=== PATIENT | male | born 1950 | race Caucasian/White ===

== ENCOUNTER 2017-07-17 09:59 | Day surgery (SDC) | payer MEDICARE, BC ==
[~2017-07-17 09:59] MED LIST: Metoclopramide 10 MG/2 ML SDV IV PRN; Sodium Chloride 0.9% 1,000 ML IV SCH; Sodium Chloride 0.9% 10 ML Syringe FLUSH PRN
[2017-07-17] MEDS ORDERED: Propofol 1,000 MG/100 ML SDV ONE (12:40)
[2017-07-17] MEDS ORDERED: Midazolam 1 MG/ML 5 ML SDV ONE (12:40)
--- NOTE | 2017-07-17 14:14 | OR ---
DATE OF OPERATION: 07/17/2017 PREOPERATIVE DIAGNOSIS: History of diverticulitis. POSTOPERATIVE DIAGNOSIS: History of diverticulitis. PROCEDURE: Colonoscopy with polypectomy. ANESTHESIA: MAC. ESTIMATED BLOOD LOSS: Minimal. COMPLICATIONS: None. INDICATION FOR THE PROCEDURE: The patient is a 67-year-old male, who 4 months ago had a bout of mild diverticulitis. This is the patient's first diverticulitis. He also had previous colonoscopy 8 years ago, which time was found to have 4 polyps. The patient has otherwise been doing well. No other change in his bowel habits. DESCRIPTION OF PROCEDURE: Informed consent was obtained from the patient. The patient was taken to the operating room, placed on table in left lateral decubitus position. Monitored anesthesia care was administered. Digital rectal exam was normal. Colonoscope was then advanced through the anus and directed toward the cecum. Cecum was identified by appendiceal orifice and ileocecal valve. Colonoscope was then slowly withdrawn. The patient did have a small sessile polyp in the ascending colon, which was removed with hot biopsy polypectomy in piecemeal fashion. The patient was noted to have a tortuous sigmoid colon with several small diverticula. Otherwise, no additional masses, areas of ischemia or inflammation were identified. Retroflexion was performed in the rectum, which was also unremarkable. Colonoscope was then withdrawn. FINDINGS: Ascending colon polyp and sigmoid diverticulosis. RECOMMENDATIONS: We will follow up on biopsies. Otherwise, would recommend repeat screening colonoscopy in 5 years. YANA /[id number]
== END 2017-07-17 14:40 | disposition home or self-care (01) ==
LOC: LB.SDS 09:59
PROVIDERS: ATTEND Surgery
DX: D12.2 Benign neoplasm of ascending colon (principal); K57.30 Diverticulosis of large intestine without perforation or abscess without bleeding; Z86.010 Personal history of colon polyps; Z87.19 Personal history of other diseases of the digestive system
CPT/HCPCS: 88305; J2250; J3490; J7040

== ENCOUNTER 2023-06-19 09:27 | Day surgery (SDC) | payer MEDICARE ==
[~2023-06-19 09:27] MED LIST changes: -Sodium Chloride 0.9% 1,000 ML IV SCH; -Sodium Chloride 0.9% 10 ML Syringe FLUSH PRN
[2023-06-19] MEDS: Sodium Chloride 0.9% 1,000 ML IV SCH (10:01)
[2023-06-19] MEDS ORDERED: Propofol 1,000 MG/100 ML SDV ONE (11:45)
== END 2023-06-19 13:04 | disposition home or self-care (01) ==
LOC: LB.SDS 09:27
PROVIDERS: ATTEND Surgery
DX: Z12.11 Encounter for screening for malignant neoplasm of colon (principal); D12.3 Benign neoplasm of transverse colon; D12.5 Benign neoplasm of sigmoid colon; D12.2 Benign neoplasm of ascending colon
CPT/HCPCS: 88305; J2704; J7030

== ENCOUNTER 2024-12-25 13:20 | Emergency (ER) | payer MEDICARE | END 2024-12-25 14:15 | disposition home or self-care (01) | LOC: LB.ED 13:20 | DX: H43.811 Vitreous degeneration, right eye (principal); F17.200 Nicotine dependence, unspecified, uncomplicated; M19.90 Unspecified osteoarthritis, unspecified site | CPT/HCPCS: 99283 ==